=== PATIENT | female | born 1980 | race Caucasian/White ===

== ENCOUNTER 2020-05-22 09:24 | Inpatient (IN) | payer OTHER, SELFPAY ==
[~2020-05-22] VITALS: Ht 162.6 cm; Wt 107.5 kg
[2020-05-22 09:25] VITALS: Ht 162.6 cm; Wt 107.5 kg
[2020-05-22 10:42] LABS: CALCIUM 8.8 mg/dL (8.5-10.1); CARBON DIOXIDE 23.8 mmol/L (21-32); CHLORIDE SERUM 103 mmol/L (98-107); CREATININE SERUM 0.8 mg/dL (0.6-1.0); GFR1 > 60 mL/min; GLUCOSE SERUM 131 mg/dL (74-106); SODIUM SERUM 139 mmol/L (136-145)
[2020-05-22 10:54] LABS: BASOPHIL % 0.2 % (0-2); PLATELET COUNT 259 x10^3mcL (130-400); RED CELL DISTRIBUTION WIDTH 13.6 % (11.5-14.5)
[2020-05-22 10:56] LABS: ALBUMIN 3.6 g/dL (3.4-5.0); ALKALINE PHOSPHATASE 98 U/L (46-116); ALT/SGPT 34 U/L (14-59); AST/SGOT 25 U/L (15-37); BILIRUBIN TOTAL 0.43 mg/dL (0.20-1.00); C REACTIVE PROTEIN 1.8 mg/dL (<=0.9); CHOLESTEROL 151 mg/dL (<200); LACTIC DEHYDROGENASE (LDH) 142 U/L (100-190); MAGNESIUM 2.2 mg/dL (1.8-2.4)
[2020-05-22 10:57] LABS: HDL CHOLESTEROL 32 mg/dL (40-60); TOTAL PROTEIN, SERUM 8.6 g/dL (6.4-8.2)
[2020-05-22 12:11] LABS: UA SPECIFIC GRAVITY <=1.005 (1.005-1.035); microscopic required? YES; urine erythrocyte 3+ (NEGATIVE)
[2020-05-22 16:18] VITALS: BP 110/69
[2020-05-22 19:41] VITALS: BP 110/69
[2020-05-22 21:41] VITALS: BP 123/68
[2020-05-23 05:55] VITALS: BP 108/64
[2020-05-23 07:45] LABS: CARBON DIOXIDE 24.6 mmol/L (21-32); CHLORIDE SERUM 106 mmol/L (98-107); CREATININE SERUM 0.8 mg/dL (0.6-1.0); GFR1 > 60 mL/min; GLUCOSE SERUM 94 mg/dL (74-106); MAGNESIUM 2.2 mg/dL (1.8-2.4); POTASSIUM SERUM 3.8 mmol/L (3.5-5.1); SODIUM SERUM 141 mmol/L (136-145)
[2020-05-23 08:06] LABS: BASOPHIL % 0.3 % (0-2); PLATELET COUNT 221 x10^3mcL (130-400); RED CELL DISTRIBUTION WIDTH 13.8 % (11.5-14.5)
[2020-05-23 08:29] VITALS: BP 112/63
[2020-05-23 12:20] VITALS: BP 121/57
[2020-05-23 16:12] VITALS: BP 120/71
[2020-05-23 21:18] VITALS: BP 117/60
[2020-05-24] VITALS (7 sets, daily range): BP systolic 103–116; BP diastolic 52–72
[2020-05-24 07:29] LABS: BASOPHIL % 0.3 % (0-2); PLATELET COUNT 204 x10^3mcL (130-400)
[2020-05-24 07:45] LABS: CALCIUM 8.7 mg/dL (8.5-10.1); CARBON DIOXIDE 25.7 mmol/L (21-32); CHLORIDE SERUM 104 mmol/L (98-107); CREATININE SERUM 0.8 mg/dL (0.6-1.0); GFR1 > 60 mL/min; GLUCOSE SERUM 97 mg/dL (74-106); POTASSIUM SERUM 3.7 mmol/L (3.5-5.1); SODIUM SERUM 140 mmol/L (136-145)
[2020-05-25 06:04] VITALS: BP 107/50
[2020-05-25 08:39] VITALS: BP 108/51
[2020-05-25] MEDS ORDERED: VENTOLIN H0.09 MG/A1 INH (10:12)
[2020-05-25] MEDS ORDERED: MUCINEX600 MG PO (10:13)
[2020-05-25] MEDS ORDERED: MOT600 PO (10:14)
[2020-05-25 11:59] VITALS: BP 101/51
[2020-05-25 14:10] VITALS: BP 101/51
[2020-05-25 16:18] VITALS: BP 103/63
== END 2020-05-25 23:45 | disposition home or self-care (01) | DRG 871 ==
LOC: ED 09:24 → DU 12:18
PROVIDERS: Emergency Medicine; ADMIT Family Medicine; ATTEND Family Medicine
DX: A41.9 Sepsis, unspecified organism (principal); U07.1 COVID-19; J12.89 Other viral pneumonia; J96.01 Acute respiratory failure with hypoxia; D68.59 Other primary thrombophilia; Z90.49 Acquired absence of other specified parts of digestive tract; S09.90XA Unspecified injury of head, initial encounter; W18.39XA Other fall on same level, initial encounter; Y93.89 Activity, other specified; Y92.89 Other specified places as the place of occurrence of the external cause; Y99.8 Other external cause status
CPT/HCPCS: 36600; 82962; 83880; 85378; 87804; C9113; G0378; J0456; J0696; J1650; J2405; J3535; J7030; J7050; J7060; U0003